=== PATIENT | male | born 2000 | race Caucasian/White ===

== ENCOUNTER 2024-07-08 18:27 | Emergency (ER) | payer OTHER, SELFPAY ==
[2024-07-08 18:50] VITALS: BP 145/92; PULSE 78; RESP 16; TEMP 36.7; O2SAT 98; BMI 30.7
--- NOTE | 2024-07-08 18:56 | DI.RAD.S_ITS ---
PROCEDURE: XR FOREARM RT 2V INDICATIONS: fall on stairs, landed on forearm TECHNIQUE: 2 views of the forearm were acquired. COMPARISON: None. FINDINGS: Bones: No fractures or dislocations. No suspicious bony lesions. Soft tissues: No suspicious soft tissue calcifications or masses. IMPRESSION: No acute forearm fracture or dislocation. No soft tissue abnormalities. Dictated by: Johnny Jenkins M.D. on 07/08/2024 at 19:06 Approved by: Johnny Jenkins M.D. on 07/08/2024 at 19:07
--- NOTE | 2024-07-08 21:59 | ED_ITS ---
HPI - Extremity Injury (Upper) General Chief Complaint: Extremity Injury, Upper Stated Complaint: rt arm injury s/p fall Time Seen by Provider: 07/08/24 21:59 Source: patient, RN notes reviewed and old records reviewed Mode of arrival: Ambulatory Limitations: no limitations History of Present Illness HPI narrative: 23-year-old male no reported medical issues who presents with complaint of right arm pain patient had fall falling forward on his steps hit his forearm. He states he was not sure if he heard a crack of the bone or possibly his keys hitting the ground and had pain at a area just in the proximal forearm. Patient states no other injuries. He was got good range of motion. He has been icing it which has improved his symptoms. No bruising or skin changes otherwise he denies any other injuries. States no known drug allergies. No daily medications reported. Related Data Allergies Allergy/AdvReac Type Severity Reaction Status Date / Time No Known Drug Allergies Allergy Verified 07/08/24 18:50 Review of Systems Review of Systems ROS Unobtainable: All systems reviewed & are unremarkable except as noted in HPI and below Patient History Social History Smoking Status: Current every day smoker Smoking Status: Current every day smoker tobacco type: vaping Exam Narrative Exam Narrative: GENERAL: Alert and oriented x three, male in mild distress HEENT: Head normocephalic, atraumatic, EOMI, pupils reactive, face symmetric, moist mucous membranes NECK: Supple, full range of motion CARDIOVASCULAR: Regular rate and rhythm without murmurs, rubs or gallops. RESPIRATORY: Breath sounds equal bilaterally, no wheezes rales or rhonchi. ABDOMEN: Soft, nontender. Normoactive bowel sounds all 4 quadrants. No guarding or rebound, rigidity, no mass EXTREMITIES: Normal range of motion, no clubbing or edema. Neurovascularly intact. Patient minimal tenderness over the ulna more proximally but no point tenderness of the right forearm. Full range of motion no other bony tenderness of the fingers, hand wrist elbow or arm. No ecchymosis, abrasion or other injuries noted. NEUROLOGICAL: Cranial nerves II through XII grossly intact. Moving all extremities SKIN: Warm, dry, no petechiae, no rashes or lesions. Initial Vital Signs Initial Vital Signs: Vital Signs Temperature 98.1 F 07/08/24 18:50 Pulse Rate 78 07/08/24 18:50 Respiratory Rate 16 07/08/24 18:50 Blood Pressure 145/92 H 07/08/24 18:50 Pulse Oximetry 98 07/08/24 18:50 Oxygen Delivery Method Room Air 07/08/24 18:50 Course Orders Ordered: ED Orders 07/08/24 18:56 XR forearm RT 2V Stat Vital Signs Vital signs: Vital Signs - 8 hr 07/08/24 22:21 Pulse Rate 66 Respiratory Rate 14 Blood Pressure 128/76 Pulse Oximetry 99 Oxygen Delivery Method Room Air [facility] - Extremity Injury (Upper) Imaging Data Extremity x-ray #1: Radiologist's Impression: [address] [address] XRay Report Signed Patient: Levon Colbert MR#: [id number] : 2000 Acct:[id number] Age/Sex: 23 / M Date of Service: 07/08/24 Loc: ED Accession Number: [id number] Procedure: XR forearm RT 2V Ordering Provider: Chacha Casas D.O. PROCEDURE: XR FOREARM RT 2V INDICATIONS: fall on stairs, landed on forearm TECHNIQUE: 2 views of the forearm were acquired. COMPARISON: None. FINDINGS: Bones: No fractures or dislocations. No suspicious bony lesions. Soft tissues: No suspicious soft tissue calcifications or masses. IMPRESSION: No acute forearm fracture or dislocation. No soft tissue abnormalities. Dictated by: Johnny Jenkins M.D. on 07/08/2024 at 19:06 Approved by: Johnny Jenkins M.D. on 07/08/2024 at 19:07 [facility] Narrative Medical decision making narrative: Forearm x-ray is negative. Patient's exam is overall reassuring. Discussed if persistent symptoms repeat imaging in 7-10 days. Patient feels comfortable with the plan. Discharge Plan Departure Patient Disposition: Home Clinical Impression: Pain in right forearm, Fall Activity Restrictions/Additional Instructions: Follow up for recheck if your symptoms are not improving, you can sometimes have very small fractures that are noted until they start to heal and then can be seen on repeat x-rays in 7-10 days. Your x-ray today does not show any obvious fractures or breaks of the bone. Elevated affected body part to decrease swelling. OK to use ice pack on the affected body part. Use for 15-20 minutes each time, for 5-6x per day. If you develop worsening pain, numbness, tingling, discoloration of the affected body part either see your doctor for an urgent re-assessment, or return to the Emergency Department. Return to the Emergency Department for any new or worsening symptoms. Stand Alone Forms: Patient Portal/API/Survey
[2024-07-08 22:21] VITALS: BP 128/76; PULSE 66; RESP 14; O2SAT 99
== END 2024-07-08 22:26 | disposition home or self-care (01) ==
PROVIDERS: Emergency Provider Emergency Medicine
DX: M79.631 Pain in right forearm (principal); W10.9XXA Fall (on) (from) unspecified stairs and steps, initial encounter
CPT/HCPCS: 73090; 99281; 99283